=== PATIENT | male | born 2000 | race Caucasian/White ===

== ENCOUNTER → 2021-03-06 10:22 | Outpatient (CLI) | payer OTHER, SELFPAY ==
--- NOTE | 2021-03-06 10:31 | RAD_ITS ---
STUDY: X-RAY - LEFT WRIST REASON FOR EXAM: Left wrist pain for 2 years after left wrist injury. TECHNIQUE: 3 view(s) of the wrist were obtained. COMPARISON: None. FINDINGS: Normal visualized distal radius and ulna. Normal radiocarpal articulation. Normal distal radioulnar articulation. Normal carpal bones. Normal carpal articulations. Normal carpometacarpal articulation of the thumb. Normal second through fifth carpometacarpal articulations. Normal visualized metacarpal bones. The soft tissue structures are unremarkable. RAD/Wrist min 3 Views IMPRESSION: Normal x-ray examination of the left wrist. Electronically Signed: Joseph Mccollum MD at 11:53 EDT Tel , Service support ,
== END ==
PROVIDERS: PCP Family Medicine; Referring Provider Orthopaedic Surgery; Visit Provider Orthopaedic Surgery
DX: M25.532 Pain in left wrist (principal); M19.90 Unspecified osteoarthritis, unspecified site; N20.2 Calculus of kidney with calculus of ureter
CPT/HCPCS: 73110

== ENCOUNTER → 2021-03-28 11:11 | Outpatient (CLI) | payer OTHER, SELFPAY ==
[2021-03-28 11:44] LABS: Color, Urine Straw (Yellow); Glucose, Dipstick Normal (Normal); Ketone-Dipstick Negative (Negative); Leukocyte Esterase-Dipstick Negative /ul (Negative); Nitrite-Dipstick Negative (Negative); Occult Blood-Urine Negative /ul (Negative); Protein-Dipstick Negative (Negative); Specific Gravity, Urine 1.005 (1.002-1.030); Urine Bilirubin Dipstick Negative (Negative); Urine Clarity Clear (Clear); Urine Urobilinogen Normal (Normal)
== END ==
PROVIDERS: Referring Provider Orthopaedic Surgery; Visit Provider Orthopaedic Surgery
DX: N20.2 Calculus of kidney with calculus of ureter (principal)
CPT/HCPCS: 81002

== ENCOUNTER → 2021-04-20 09:07 | Outpatient (CLI) | payer OTHER, SELFPAY ==
[2021-04-20 10:08] LABS: Microalbumin,Random Urine 6.5 mg/L (NO RANGE EST.); Microalbumin:Creatinine Ratio 5.4 mg/g CRE (<30 mg/g CRE)
[2021-04-20 10:09] LABS: ALB/GLOB Ratio 1.2 RATIO (0.9-2.4); AST(SGOT) 41 U/L (15-37); Alanine Aminotransfer ALT/SGPT 77 U/L (16-61); Alkaline Phosphatase 104 U/L (45-117); Anion Gap 4 (5-15); BUN 16 mg/dL (7-18); BUN/Creat Ratio 16.4 RATIO (10-20); Chloride 103 mmol/L (98-107); Creatinine, Serum 0.98 mg/dL (0.70-1.30); EST Glomerular Filtration Rate 103 mL/min (>60); Est Glom Filt Rate - Afr Amer 125 mL/min (>60); Globulin 3.3 g/dL (2.2-4.2); Glucose 90 mg/dL (74-106); Potassium 4.1 mmol/L (3.5-5.1); Protein, Total 7.3 g/dL (6.4-8.2); Sodium Level 140 mmol/L (136-145)
== END ==
PROVIDERS: Referring Provider Orthopaedic Surgery
DX: N20.0 Calculus of kidney (principal)
CPT/HCPCS: 36415; 80053; 82043; 82570